=== PATIENT | female | born 1955 | race Caucasian/White ===

== ENCOUNTER 2018-11-02 11:11 | Inpatient (IN) | payer BC ==
[~2018-11-02] VITALS: Ht 167.6 cm; Wt 79.8 kg
[2018-11-02 11:25] VITALS: BP 178/107
--- NOTE | 2018-11-02 11:36 | NUR ---
URINE CUP HANDED TO PT FOR SAMPLE---BACK TO ER LOBBY TO WAIT FOR AVAILABLE ROOM FOR MD LEROY
[2018-11-02 12:32] LABS: BASOPHILS % (AUTO) 0.5 % (0.0-2.0); EOSINOPHILS % (AUTO) 0.2 % (0.0-4.0); HEMATOCRIT 40.8 % (36-48); HEMOGLOBIN 14.1 g/dL (12.0-16.0); LYMPHOCYTES # (AUTO) 2.5 K/uL (2.5-16.5); LYMPHOCYTES % (AUTO) 31.4 % (20.5-51.1); MEAN CORPUSCULAR HEMOGLOBIN 32 pg (27-31); MEAN CORPUSCULAR HGB CONC 35 g/dL (33-37); MEAN CORPUSCULAR VOLUME 92.6 fL (80-94); MONOCYTES # (AUTO) 0.7 K/uL (0.8-1.0); NEUTROPHILS # (AUTO) 4.8 K/uL (1.8-7.7); NEUTROPHILS % (AUTO) 59.9 % (42.2-75.2); PLATELET COUNT (AUTO) 266 K/uL (140-450); RED CELL DISTRIBUTION WIDTH 12.5 % (11.6-13.7); WHITE BLOOD COUNT (AUTO) 8.1 K/uL (4.8-10.8)
[2018-11-02 12:38] LABS: PROTHROMBIN TIME 9.4 secs (10.8-13.4)
[2018-11-02 12:45] LABS: ANION GAP 13.1 (8-16); CARBON DIOXIDE 29.4 mmol/L (21-32); CREATININE 0.9 mg/dL (0.6-1.3); POTASSIUM 4.5 mmol/L (3.5-5.1)
--- NOTE | 2018-11-02 12:46 | NUR ---
C/O SUDDEN ONSET OF DIZZINESS LIGHTHEADEDNESS AND HEADACHE WHILE IN FLIGHT FROM [place] TODAY---MILD NAUSEA ADMITS TO NEWLY DX OF HTN ; PLACED ON LISINOPRIL HIGH BLOOD PRESSURE TODAY----PT HERE ON BUSINESS FROM [place] NO FACIAL ASYMMETRY, FULL CLEAR SPEECH, AMBULATORY WITH STEADY GAIT, EQUAL SCHOOL CLERK, NO DRIFT NOTED AT THIS TIME.
--- NOTE | 2018-11-02 12:55 | NUR ---
PT ARRIVED AT UNIT, STABLE, AMBULATED TO BED, TOLERATED WELL, RECEIVED BEDSIDE REPORT FROM DAY SHIFT NURSE CINDY MILNER, IV TO L AC 20G PATENT, INTACT, FLUSHING WELL, SL, PT ON ROOM AIR, NO SOB NOTED, PT STATED HAVING A SLIGHT HEADACHE 4/10, PER PT SHE JUST GOT TYLENOL IN ER AND DOES NOT WANT TYLENOL AND STATED SHE IS OK FOR NOW, MRSA SWAB TAKEN, V/S TAKEN, WITHIN NORMAL LIMITS, ORIENT PT TO ROOM BED, CALL LIGHT, PT STATED UNDERSTANDING, INITIAL ASSESSMENT DONE, ALL SAFETY PRECAUTION MET, CALL LIGHT WITHIN REACH, WILL CONTINUE TO MONITOR. Addendum: 11/02/18 at 3314 by Teresa Mena RN WRONG TIME [id number]
[2018-11-02 13:01] LABS: ALBUMIN 3.8 g/dL (3.4-5.0); TOTAL BILIRUBIN 0.6 mg/dL (0.0-1.0)
[2018-11-02] MEDS ORDERED: ASPIRIN 81 MG TAB.CHEW PO ONE (13:20)
[2018-11-02] MEDS ORDERED: NITROGLYCERIN 2% 1 GM PKT TP ONE (13:20)
[2018-11-02 13:55] LABS: APPEARANCE,URINE CLEAR (CLEAR); BILIRUBIN,URINE 1+ (NEGATIVE); BLOOD, URINE NEGATIVE (NEGATIVE); COLOR,URINE YELLOW (YELLOW); LEUKOCYTE ESTERASE ,URINE TRACE (NEGATIVE); NITRITE, URINE NEGATIVE (NEGATIVE); UGLUCOSE NEGATIVE (NEGATIVE)
[2018-11-02] MEDS ORDERED: ACETAMINOPHEN 325 MG TAB PO ONE (13:55)
[2018-11-02 14:07] LABS: RBC,URINE NONE SEEN /HPF (0-5)
[2018-11-02] MEDS ORDERED: ACETAMINOPHEN 325 MG TAB PO PRN (14:20)
[2018-11-02] MEDS ORDERED: DOCUSATE SODIUM 100 MG GELCAP PO PRN (14:20)
[2018-11-02] MEDS ORDERED: ONDANSETRON 4 MG/2 ML VIAL IM/IVP PRN (14:20)
[2018-11-02] MEDS ORDERED: HYDROcodone/APAP 5/325 MG 1 TAB TAB PO PRN (14:20)
[2018-11-02] MEDS ORDERED: NITROGLYCERIN 0.4 MG TAB SL PRN (14:25)
--- NOTE | 2018-11-02 14:34 | NUR ---
CALLED THE LAB FOR TROPONIN, WILL INPUT THE TROPONIN VALUE FOR PT. MD NOTIFIED. PT TO GO TO FLOOR.
--- NOTE | 2018-11-02 14:37 | NUR ---
MD ORDER FOR REPEAT EKG ON THE PT.
--- NOTE | 2018-11-02 14:50 | NUR ---
Patient will be admitted to care of DR. ARMENDARIZ. Admited to [facility] FLOOR. Will go to room 105 A. Belongings list completed. Report to ANNIA SPRINGER.
[2018-11-02 15:00] VITALS: BP 143/84
--- NOTE | 2018-11-02 15:00 | NUR ---
DR. ASIF AT BEDSIDE TALKING TO PT
[2018-11-02] MEDS ORDERED: ROSU10TA1 PO (15:23)
[2018-11-02] MEDS ORDERED: LISI10TA11 PO (15:23)
[2018-11-02] MEDS ORDERED: LISINOPRIL 10 MG TAB PO SCH (15:30)
[2018-11-02 15:35] LABS: BARBITURATE, URINE NEGATIVE ng/ml (NEG <=200); BENZODIAZEPINE, URINE NEGATIVE ng/mL (NEG <=200); CANNABINOID, URINE NEGATIVE ng/mL (NEG <=50); COCAINE, URINE NEGATIVE ng/mL (NEG <=300); OPIATE, URINE NEGATIVE ng/mL (NEG <=2000); PHENCYCLIDINE SCREEN,URINE NEGATIVE ng/mL (NEG <=25)
[2018-11-02 15:44] LABS: FREE T4 (FREE THYROXINE) 0.9 ng/dL (0.76-1.46); MAGNESIUM 2.1 mg/dL (1.8-2.4); PHOSPHORUS 3.4 mg/dL (2.5-4.9); THYROID STIMULATING HORMONE 4.39 uIU/mL (0.34-3.74)
--- NOTE | 2018-11-02 15:54 | NUR ---
DUE MEDICATION ADMINISTERED, PT TOLERATED WELL, NO DISTRESS NOTED, CALL LIGHT WITHIN REACH, WILL CONTINUE TO MONITOR.
[2018-11-02 16:00] VITALS: BP 119/63
--- NOTE | 2018-11-02 17:00 | NUR ---
DUE MEDICATION ADMINISTERED, PT TOLERATED WELL, NO DISTRESS NOTED, CALL LIGHT WITHIN REACH, WILL CONTINUE TO MONITOR.
[2018-11-02] MEDS ORDERED: ZOLPIDEM 5 MG TAB PO PRN (18:55)
--- NOTE | 2018-11-02 19:08 | NUR ---
ENDORSED PT TO DAY SHIFT NURSE OLIVE RN, PT STABLE, NO DISTRESS NOTED, CALL LIGHT WITHIN REACH, WILL CONTINUE TO MONITOR.
--- NOTE | 2018-11-02 19:09 | NUR ---
RECEIVED BEDSIDE REPORT FROM AM SHIFT NURSE. PT AWAKE, A O X 4. AMBULATORY. W/ IV TO L AC 20G PATENT, INTACT, PATENT, ON SL. PT ON ROOM AIR, NO SOB NOTED, PT STATED HAVING A SLIGHT HEADACHE 3/10, PER PT SHE WANTS TYLENOL .POC DISCUSSED. CALL LIGHT WITHIN REACH, WILL CONTINUE TO MONITOR.
--- NOTE | 2018-11-02 19:15 | NUR ---
BP 141/81 HR= 72; WILL RECHECK BP AGAIN LATER; WAS GIVEN PAIN MEDS FOR HEADACHE EARLIER; WILL REASSESS PAIN
[2018-11-02 19:50] VITALS: BP 141/81
[2018-11-02] MEDS ORDERED: NON-FORMULARY ITEM (Rosuvastatin Calcium* (Crestor*) 10 MG) PO SCH (20:00)
[2018-11-02] MEDS ORDERED: ATORVASTATIN 20 MG TAB PO SCH (21:00)
[2018-11-02] MEDS: METOPROLOL 25 MG TAB PO SCH (21:00)
--- NOTE | 2018-11-02 21:00 | NUR ---
PT ASKED WHY HER ATORVASTATIN IS MORE THAN HER HOME MEDS. DR. MAY EXPLAINED NURSE THAT PT IS GETTING HER HIGHER DOSE TO TREAT THE STATIN LEVELS THAT MIGHT BE THE CAUSE OF HER CHEST PAIN. PT ACKNOWLEDGED BUT NEED MORE EXPLANATION ON IT W/ DR. ARMENDARIZ / RESIDENTS
--- NOTE | 2018-11-02 21:03 | NUR ---
PT'S BP IS ALREADY 113/ 63; FROM EARLIER IT WAS 141/ 81 LISINOPRIL WAS GIVEN BY AM SHIFT NURSE ONE TIME DOSE. LOPRESSOR MED HELD; DR. MAY AWARE
[2018-11-02 23:38] VITALS: BP 96/52
--- NOTE | 2018-11-03 | NUR ---
PT'S BP 96/54; HR 66 PT DENIES PAIN WILL CONTINUE TO MONITOR
--- NOTE | 2018-11-03 02:08 | NUR ---
PT ABLE TO AMBULATE TO THE BATHROOM; VOIDED. NO COMPLAINTS OF CHEST PAIN AT THIS TIME. NO SOB, NO RESPIRATORY DISTRESS NOTED. NO COMPLAINTS OF DIZZINESS. WILL CONTINUE TO MONITOR
--- NOTE | 2018-11-03 03:46 | NUR ---
DR. MAY INFORMED PT'S BP= 152/65; HR 96; ALSO INFORMED PT HAS HEADACHE AND PT REDUSED TO TAKE TYLENOL. WILL ADMINISTER THE AM DOSE OF LISINOPRIL NOW FOR HYPERTENSION; DR. MAY AWARE
[2018-11-03] MEDS: LISINOPRIL 10 MG TAB PO SCH (03:47)
[2018-11-03 04:00] VITALS: BP 152/65
--- NOTE | 2018-11-03 05:12 | NUR ---
RECHECKED BP 1 HR 20 MINDS AFTER TAKING LISNOPRIL PB 117/ 72 ; HR 61 Addendum: 11/03/18 at 0513 by Bing Sparrow RN AMEND MINDS TO MINS
--- NOTE | 2018-11-03 05:54 | NUR ---
PT SUPINE IN BED; TRYING TO SLEEP. W/ CONTINUOUS DULL HEADACHE 04/26. PT REFUSED TO TAKE TYLENOL ONLY ONCE IN THE BEGINNING OF THE SHIFT. INFORMED DR. MAY RE: HTN. DR. NATION. WILL ENDORSE TO NEXT SHIFT
[2018-11-03 06:56] LABS: CHOL/HDL RATIO 2.1 (1-4.5)
[2018-11-03 07:48] VITALS: BP 136/80
[2018-11-03 07:57] LABS: BASOPHILS % (AUTO) 0.5 % (0.0-2.0); EOSINOPHILS % (AUTO) 0.6 % (0.0-4.0); HEMATOCRIT 39.3 % (36-48); HEMOGLOBIN 13.4 g/dL (12.0-16.0); LYMPHOCYTES # (AUTO) 2.9 K/uL (2.5-16.5); LYMPHOCYTES % (AUTO) 40.5 % (20.5-51.1); MEAN CORPUSCULAR HEMOGLOBIN 32 pg (27-31); MEAN CORPUSCULAR HGB CONC 34 g/dL (33-37); MEAN CORPUSCULAR VOLUME 92.9 fL (80-94); MONOCYTES # (AUTO) 0.7 K/uL (0.8-1.0); MONOCYTES % (AUTO) 9.4 % (1.7-9.3); NEUTROPHILS # (AUTO) 3.5 K/uL (1.8-7.7); PLATELET COUNT (AUTO) 244 K/uL (140-450); RED BLOOD CELL COUNT(AUTO) 4.23 MIL/uL (4.20-5.40); RED CELL DISTRIBUTION WIDTH 12.7 % (11.6-13.7); WHITE BLOOD COUNT (AUTO) 7.1 K/uL (4.8-10.8)
--- NOTE | 2018-11-03 08:04 | NUR ---
RECEIVED BED SIDE REPORT FROM TOWER HAND RN. PT A/O X4, VS STABLE, ON RA IN NO RESP DISTRESS. PT HAS LEFT AC 20G SL. PT DENIES CHEST PAIN. PT HAS 4/10 PERRIN, PT REFUSED PAIN MEDS. US CAROTID BILAT AND HEAD CT RESULTS PENDING. LAST BM YESTERDAY. SKIN INTACT. CALL LIGHT WITHIN REACH, WILL CONTINUE TO MONITOR.
[2018-11-03] MEDS ORDERED: APAP/BUTAL/CAFF 325/50/40 MG 1 TAB PO SCH (08:15)
[2018-11-03] MEDS: ECOTRIN 81 MG TABEC PO SCH (08:42)
[2018-11-03] MEDS: LACTOBACILLUS RHAMNOSUS GG 1 EACH CAP PO SCH (08:42)
[2018-11-03] MEDS: METOPROLOL 25 MG TAB PO SCH (08:43)
[2018-11-03 08:45] LABS: ANION GAP 12.6 (8-16); CARBON DIOXIDE 26.7 mmol/L (21-32); CREATININE 0.6 mg/dL (0.6-1.3); POTASSIUM 4.3 mmol/L (3.5-5.1)
--- NOTE | 2018-11-03 08:58 | NUR ---
PATIENT HAS BEEN SCREENED AND CATEGORIZED MODERATE NUTRITION RISK. PATIENT WILL BE SEEN WITHIN 3-5 DAYS OF ADMISSION. 11/05/18[address]
--- NOTE | 2018-11-03 09:14 | NUR ---
GAVE PT AM MEDS. PT TOLERATED WELL. WILL CONTINUE TO MONITOR.
--- NOTE | 2018-11-03 11:26 | NUR ---
PT STABLE. VS STABLE. PT APPEARS IN NO DISTRESS. WILL CONTINUE TO MONITOR.
[2018-11-03 11:42] VITALS: BP 119/78
[2018-11-03] MEDS ORDERED: APAP/BUTAL/CAFF 325/50/40 MG 1 TAB PO PRN (12:00)
[2018-11-03 15:27] VITALS: BP 116/64
--- NOTE | 2018-11-03 15:37 | NUR ---
PT RESTING COMFORTABLY IN BED, IN NO DISTRESS. CALL LIGHT WITHIN REACH, WILL CONTINUE TO MONITOR.
--- NOTE | 2018-11-03 19:17 | NUR ---
GAVE BED SIDE REPORT TO DETECTOR CAR OPERATOR RN. PT STABLE.
--- NOTE | 2018-11-03 19:25 | NUR ---
RECEIVED REPORT AT BEDSIDE FROM JENNA MILNER DAYSHIFT NURSE AT BEDSIDE FOR CONTINUITY OF CARE, PT IN STABLE CONDITION.
[2018-11-03 20:00] VITALS: BP 114/67
--- NOTE | 2018-11-03 20:00 | NUR ---
PT IN LOW BED WITH SIDE RAILS UP X2, SHE IS AOX4 WITH NO C/O OF PAIN OR DISTRESS NOTED.V/S FOLLOWS t 97.4 P 71 R 18 B/P 114/67 02 99% ON ROOM AIR. VISITOR AT BEDSIDE AND CALL RODRIGUEZ IN REACH.
[2018-11-03] MEDS ORDERED: ATORVASTATIN 20 MG TAB PO SCH (21:00)
--- NOTE | 2018-11-03 21:00 | NUR ---
PT IN BED, VISITOR LEFT. PT GIVEN DUE MEDS OF LIPITOR 40MG. EDUCATION REGARDING MEDICATION AND DIAGNOSIS PROVIDED TO PT. PT VERBALIZED UNDERSTANDING.
[2018-11-04] VITALS: BP 134/68
--- NOTE | 2018-11-04 | NUR ---
PT IN BED SLEEPING NO S/S OF PAIN OR DISTRESS NOTED. V/S FOLLOWS T 97.3 P 62 R 18 B/P 134/68 02 98% ON ROOM AIR. BED LOW SIDE RAILS UP X2. PT AMBULATED TO TOILET AND BACK WITH STEADY GAIT. ALL REQUESTED NEEDS ATTENDED AND CALL RODRIGUEZ IN REACH.
[2018-11-04 04:00] VITALS: BP 129/70
[2018-11-04 07:06] LABS: BASOPHILS % (AUTO) 0.4 % (0.0-2.0); EOSINOPHILS % (AUTO) 0.6 % (0.0-4.0); HEMATOCRIT 39.8 % (36-48); HEMOGLOBIN 13.7 g/dL (12.0-16.0); LYMPHOCYTES # (AUTO) 3.1 K/uL (2.5-16.5); LYMPHOCYTES % (AUTO) 42.9 % (20.5-51.1); MEAN CORPUSCULAR HEMOGLOBIN 32 pg (27-31); MEAN CORPUSCULAR HGB CONC 35 g/dL (33-37); MEAN CORPUSCULAR VOLUME 92.1 fL (80-94); MONOCYTES # (AUTO) 0.6 K/uL (0.8-1.0); MONOCYTES % (AUTO) 8.3 % (1.7-9.3); NEUTROPHILS # (AUTO) 3.4 K/uL (1.8-7.7); NEUTROPHILS % (AUTO) 47.8 % (42.2-75.2); PLATELET COUNT (AUTO) 235 K/uL (140-450); RED BLOOD CELL COUNT(AUTO) 4.32 MIL/uL (4.20-5.40); RED CELL DISTRIBUTION WIDTH 12.6 % (11.6-13.7); WHITE BLOOD COUNT (AUTO) 7.1 K/uL (4.8-10.8)
[2018-11-04 07:14] LABS: ANION GAP 13.3 (8-16); CARBON DIOXIDE 26.9 mmol/L (21-32); CREATININE 0.6 mg/dL (0.6-1.3); POTASSIUM 4.2 mmol/L (3.5-5.1)
--- NOTE | 2018-11-04 07:15 | NUR ---
RECEIVED BEDSIDE REPORT FROM FUR MIXER NURSE MARTINA. PT IS AWAKE AND ALERT, SITTING UP IN BED TALKING, IS AT BEDSIDE. PT IN NO ACUTE DISTRESS, NO SOB OR C/O CHEST PAIN. IV SITE IS IN THE L AC 20 G, SALINE LOCKED. PT IS ON ROOM AIR, SKIN INTACT. PT IS AMBULATORY AND NOT AT RISK FOR FALL. CALL LIGHT IS WITHIN REACH, WILL CONTINUE TO MONITOR.
[2018-11-04 07:58] VITALS: BP 134/81
[2018-11-04] MEDS: LISINOPRIL 10 MG TAB PO SCH (08:19)
[2018-11-04] MEDS: LACTOBACILLUS RHAMNOSUS GG 1 EACH CAP PO SCH (08:19)
[2018-11-04] MEDS: ECOTRIN 81 MG TABEC PO SCH (08:19)
[2018-11-04] MEDS ORDERED: LORA-476 PO (08:21)
[2018-11-04] MEDS ORDERED: IBUP-2213 PO (08:23)
--- NOTE | 2018-11-04 08:35 | NUR ---
AM MEDS ADMINISTERED, PT TOLERATED WELL.
--- NOTE | 2018-11-04 09:43 | NUR ---
PT WAS GIVEN DC INSTRUCTIONS AND PRESCRIPTION, AND VERBALIZED UNDERSTANDING OF THE INSTRUCTIONS. IV SITE AND WRIST BANDS WERE REMOVED. PT LEFT WITH ALL HER BELONGINGS IN STABLE CONDITION WITH HER .
== END 2018-11-04 09:45 | disposition home or self-care (01) | DRG 206 ==
LOC: MED 11:11 → MTU 14:18
PROVIDERS: ADMIT General Practice; ATTEND General Practice
DX: M94.0 Chondrocostal junction syndrome [Tietze] (principal); G90.8 Other disorders of autonomic nervous system; I10 Essential (primary) hypertension; E78.5 Hyperlipidemia, unspecified; Z90.710 Acquired absence of both cervix and uterus; E02 Subclinical iodine-deficiency hypothyroidism
CPT/HCPCS: 36415; 70450; 71045; 80048; 80053; 80305; 81001; 81025; 82150; 83036; 83690; 83735; 83880; 84100; 84134; 84439; 84443; 84484; 85025; 85379; 85610; 85730; 87081; 87086; 93005; 93880; 93970; 99285; J0696; J7030; J7060; Q0092